=== PATIENT | female | born 1990 | race Caucasian/White ===

== ENCOUNTER 2024-02-06 08:18 | Emergency (ER) | payer OTHER, SELFPAY ==
[2024-02-06 08:21] VITALS: BP 128/79; PULSE 78; TEMP 37; O2SAT 98; BMI 27.4
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
[2024-02-06 10:26] VITALS: BP 126/76; PULSE 76; O2SAT 99
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
== END 2024-02-06 10:56 | disposition home or self-care (01) ==
PROVIDERS: Emergency Provider Emergency Medicine
DX: S60.512A Abrasion of left hand, initial encounter (principal); V43.52XA Car driver injured in collision with other type car in traffic accident, initial encounter
CPT/HCPCS: 73130; 99283